=== PATIENT | male | born 1965 | race Caucasian/White ===

== ENCOUNTER 2019-01-09 21:15 | Emergency (ER) | payer SELFPAY ==
[2019-01-09 21:32] VITALS: BP 145/101; PULSE 103; RESP 18; TEMP 36.6; O2SAT 99; BMI 18.7
--- NOTE | 2019-01-09 21:35 | ED.MALEGU ---
HPI - Male Genitourinary <TIAGO Head - Last Filed: 01/09/19 21:48> General Chief complaint: Urogenital-Male Stated complaint: groin pain Time Seen by Provider: 01/09/19 21:35 Source: patient Mode of arrival: ambulatory Limitations: no limitations History of Present Illness HPI Narrative: pt c/o R sided groin pain intermittently for a month or longer, today pain got worse and he is having trouble urinating, when he has the urge, he has to go right away, and can't hold it, noticed some swelling to the groin Complaint: dysuria and other Onset (ago): month(s) (1) Duration: intermittent Location: right inguinal region Severity: severe Quality: sharp Relieving factors: none Exacerbating factors: palpation and movement Reports swelling, mass and dysuria Related Data Home Medications Medication Instructions Recorded Confirmed Lexapro 01/09/19 Seroquel 01/09/19 dextroamphetamine-amphetamine 01/09/19 Previous Rx's Medication Instructions Recorded hydrocodone-acetaminophen 1 tab PO Q6H PRN #20 tab 01/10/19 Allergies Allergy/AdvReac Type Severity Reaction Status Date / Time cephalexin [From Keflex] AdvReac Verified 01/09/19 21:37 Review of Systems <TIAGO Head - Last Filed: 01/09/19 21:48> Constitutional Reports as per HPI and Reports system reviewed and no additional complaints, except as docu Cardiovascular Denies chest pain and Denies dyspnea Respiratory Denies dyspnea Gastrointestinal Gastrointestinal: Reports as per HPI, Denies abdominal pain, Denies melena, Denies hematochezia, Denies constipation, Denies diarrhea and Denies vomiting Genitourinary Denies hematuria, Reports difficulty urinating, Reports dysuria, Denies flank pain, Denies testicular mass, Denies testicular pain, Denies urinary frequency and Denies urinary hesitancy Musculoskeletal Denies back pain PFSH <TIAGO Head - Last Filed: 01/09/19 21:48> Social History Smoking Status: Current every day smoker Social History Smoking Status: Current every day smoker Exam <TIAGO Head - Last Filed: 01/09/19 21:48> Initial Vital Signs Initial Vital Signs: Vital Signs Temperature 97.9 F 01/09/19 21:32 Pulse Rate 103 H 01/09/19 21:32 Respiratory Rate 18 01/09/19 21:32 Blood Pressure 145/101 H 01/09/19 21:32 Pulse Oximetry 99 01/09/19 21:32 Const General: cooperative, healthy appearing, comfortable and well developed Nutritional Appearance: average body habitus Orientation: alert, awake and oriented x3 Resp Effort & Inspection: normal respiratory effort and able to speak in complete sentences Auscultation: clear to auscultation bilaterally Cardio Rate: regular rate Rhythm: regular rhythm Heart Sounds: S1 normal and S2 normal GI Inspection: normal to inspection Palpation: soft, mass (mild swelling with extreme tenderness to R inguinal, pt won't even let me ) and tender Auscultation: normal bowel sounds Other: fully exam that area or try to possibly reduce possible hernia General: bimanual renal exam normal bilaterally, bladder normal to inspection and bladder normal to palpation External: normal external exam and circumcised Penis: normal penis Meatus: meatus normal Scrotum: scrotum normal Testes: normal Back/Spine/Pelvis Cervical Spine: cervical ROM normal Thoracic/Lumbar Spine: thoraco-lumbar ROM limited Skin General: no rashes or lesions noted, elasticity normal, turgor normal and warm Neuro General: alert, awake and oriented x3 Cranial Nerves: CN's II-XI intact bilaterally Cognition: normal cognition Speech: speech normal Motor: muscle tone normal throughout Sensory Exam: no sensory deficits noted Psych Appearance: grossly normal and well kempt Mental Status: mental status grossly normal Speech and Movement: speech and movement normal Mood: congruent mood Affect: normal affect Attitude: cooperative Thought Process: normal Thought Content: normal Judgment: judgment good <Alisha Pappas DO - Last Filed: 01/10/19 09:13> Initial Vital Signs Initial Vital Signs: Vital Signs Temperature 97.9 F 01/09/19 21:32 Pulse Rate 103 H 01/09/19 21:32 Respiratory Rate 18 01/09/19 21:32 Blood Pressure 145/101 H 01/09/19 21:32 Pulse Oximetry 99 01/09/19 21:32 <Najma Arita MD - Last Filed: 01/10/19 07:27> Initial Vital Signs Initial Vital Signs: Vital Signs Temperature 97.9 F 01/09/19 21:32 Pulse Rate 103 H 01/09/19 21:32 Respiratory Rate 18 01/09/19 21:32 Blood Pressure 145/101 H 01/09/19 21:32 Pulse Oximetry 99 01/09/19 21:32 <Najma Arita MD - Last Filed: 01/10/19 07:27> Procedural Sedation Patient Age: Patient is 5yrs or older Consent signed: Yes Time out performed: Yes Indication: other (Hernia reduction) ASA Class: I Preparation: content strategy lead applied, pulse oximeter, capnometry used, supplemental O2 applied, reversal agents at bedside, suction/airway equipment at bedside and IV secured Midazolam: IV Midazolam dose (mg): 5 (+ 2.5) ED Sedation Level: Moderate (Concious) Patient Tolerated Procedure: Well Complications: none Misc Procedure Name of Procedure: Hernia reduction attempt Side (if applicable): right Location: Inguinal area Time out performed: Yes Technique/Description of procedure performed: Attempts were made under sedation to reduce the patient's right inguinal hernia with firm pressure and manipulation. Patient tolerated procedure: Well Complications: other (Unable to reduce hernia successfully, despite multiple attempts.) Course <TIAGO Head - Last Filed: 01/09/19 21:48> Course Narrative: recommended labs, urine and US, and pt declined saying he has no health insurance and wants to do the bare minimum, because he is being sued by [facility] for another ER bill, agreed to urine first 2139 urine poc dip normal, back at bedside to discuss what pt wants to do, agreed to US [address] Portillo whom is assuming care and will dispo pt after US results Orders Ordered: ED Orders 01/10/19 00:47 Complete Blood Count AUTO DIFF Stat Comprehensive Metabolic Panel Stat Lactate (Lactic Acid) Stat Discontinued Medications Hydromorphone HCl (Dilaudid) 1 mg SUBCUT Q4H PRN PRN Reason: Pain, Severe (7-10) Last Admin: 01/09/19 22:51 Dose: 1 mg Sodium Chloride (Normal Saline 0.9%) 1,000 mls @ 1,000 mls/hr IV BOLUS ONE Stop: 01/10/19 00:48 Last Admin: 01/10/19 00:20 Dose: 1,000 mls/hr Midazolam HCl (Versed) 5 mg IV NOW ONE Stop: 01/09/19 23:50 Last Admin: 01/10/19 00:27 Dose: 5 mg Midazolam HCl (Versed) 5 mg IV NOW ONE Stop: 01/10/19 00:32 Last Admin: 01/10/19 00:29 Dose: 2.5 mg Vital Signs - 8 hr 01/10/19 01:16 01/10/19 02:00 Pulse Rate 72 80 Respiratory Rate 18 16 Blood Pressure [Right Arm] 98/81 107/76 Pulse Oximetry 100 96 <Alisha Pappas DO - Last Filed: 01/10/19 09:13> Orders Ordered: ED Orders 01/10/19 00:47 Complete Blood Count AUTO DIFF Stat Comprehensive Metabolic Panel Stat Lactate (Lactic Acid) Stat Discontinued Medications Hydromorphone HCl (Dilaudid) 1 mg SUBCUT Q4H PRN PRN Reason: Pain, Severe (7-10) Last Admin: 01/09/19 22:51 Dose: 1 mg Sodium Chloride (Normal Saline 0.9%) 1,000 mls @ 1,000 mls/hr IV BOLUS ONE Stop: 01/10/19 00:48 Last Admin: 01/10/19 00:20 Dose: 1,000 mls/hr Midazolam HCl (Versed) 5 mg IV NOW ONE Stop: 01/09/19 23:50 Last Admin: 01/10/19 00:27 Dose: 5 mg Midazolam HCl (Versed) 5 mg IV NOW ONE Stop: 01/10/19 00:32 Last Admin: 01/10/19 00:29 Dose: 2.5 mg Vital Signs - 8 hr 01/10/19 01:16 01/10/19 02:00 Pulse Rate 72 80 Respiratory Rate 18 16 Blood Pressure [Right Arm] 98/81 107/76 Pulse Oximetry 100 96 <Najma Arita MD - Last Filed: 01/10/19 07:27> Course Narrative: Juan J note: Patient was signed out to me by Dr. Pappas, pending ultrasound result and re-evaluation, after being evaluated by herself and Ms. Rouse for right groin pain and mass. Ultrasound did show a hyperemic section of fat and bowel in the right inguinal canal, that appeared possibly incarcerated. I discussed with the patient that we could try to reduce hernia here in the emergency department. Patient was concerned about feeling any pain, and so I did discuss the possibility of procedural sedation with him, and patient preferred this. Patient was sedated with Versed, but reduction attempts were unsuccessful. I did speak with Dr. Ivey of surgery, and she stated that she would certainly be willing to take the patient to the operating room this morning to fix the hernia but that if the patient did not wish to have this intervention today, it was not imperative that it be done today. The patient was very concerned about finances, and although we have discussed the possibility of a strangulated hernia developing, which is a surgical emergency, the patient at this point preferred to go home and think about what he would like to do. I have advised him to talk to the financial department at the hospital regarding any concerns he may have, and also, to help him get on state insurance. The patient is advised of the usual indications for return. We have also discussed surgical follow-up. Orders Ordered: ED Orders 01/10/19 00:47 Complete Blood Count AUTO DIFF Stat Comprehensive Metabolic Panel Stat Lactate (Lactic Acid) Stat Discontinued Medications Hydromorphone HCl (Dilaudid) 1 mg SUBCUT Q4H PRN PRN Reason: Pain, Severe (7-10) Last Admin: 01/09/19 22:51 Dose: 1 mg Sodium Chloride (Normal Saline 0.9%) 1,000 mls @ 1,000 mls/hr IV BOLUS ONE Stop: 01/10/19 00:48 Last Admin: 01/10/19 00:20 Dose: 1,000 mls/hr Midazolam HCl (Versed) 5 mg IV NOW ONE Stop: 01/09/19 23:50 Last Admin: 01/10/19 00:27 Dose: 5 mg Midazolam HCl (Versed) 5 mg IV NOW ONE Stop: 01/10/19 00:32 Last Admin: 01/10/19 00:29 Dose: 2.5 mg Vital Signs - 8 hr 01/10/19 01:16 01/10/19 02:00 Pulse Rate 72 80 Respiratory Rate 18 16 Blood Pressure [Right Arm] 98/81 107/76 Pulse Oximetry 100 96 MDM - Male Genitourinary <TIAGO Head - Last Filed: 01/09/19 21:48> Differential Diagnosis Likely urinary tract infection, urethritis, epididymitis, inguinal hernia and other (lymphadenopathy) Lab Data Result diagrams: 01/10/19 00:47 01/10/19 00:47 Lab Results 01/10/19 01/10/19 01/10/19 Range/Units 00:47 00:47 00:47 WBC 11.1 H (4.5-11.0) X10^3/uL RBC 4.02 L (4.5-5.9) X10^6/uL Hgb 12.6 L (13.5-17.5) g/dL Hct 37.6 L (41-53) % MCV 93.7 (80-100) fL MCH 31.5 (26-34) PG MCHC 33.6 (30-36) % RDW 14.1 (11.6-14.8) % Plt Count 232 (150-400) X10^3/uL Neut % (Auto) 64.6 (50-75) % Lymph % (Auto) 22.3 L (25-40) % [place] % (Auto) 9.7 (3-14) % Eos % (Auto) 2.8 (2-4) % Baso % (Auto) 0.6 (0-2) % Neut # (Auto) 7200 H (5850-1180) /uL Lymph # (Auto) 2500 (9961-7375) /uL [place] # (Auto) 1100 H (0-900) /uL Eos # (Auto) 300 (0-450) /uL Baso # (Auto) 100 (0-100) /uL Sodium 137 (137-145) mmol/L Potassium 3.8 (3.4-5.1) mmol/L Chloride 105 (98-107) mmol/L Carbon Dioxide 23 (22-32) mmol/L BUN 11 (9-20) mg/dL Creatinine 0.60 L (0.66-1.25) mg/dL Estimated GFR > 60.0 (>60) mL/min BUN/Creatinine Ratio 18.3 (6-22) Glucose 81 (70-100) mg/dL Lactate 1.2 (0.7-2.1) mmol/L Calcium 8.4 (8.4-10.2) mg/dL Total Bilirubin 0.7 (0.2-1.3) mg/dL AST 27 (17-59) IU/L ALT 25 (21-72) IU/L Alkaline Phosphatase 60 (38-126) U/L Total Protein 6.9 (6.3-8.2) g/dL Albumin 3.9 (3.5-5.0) g/dL Globulin 3.0 (1.7-4.1) g/dL Albumin/Globulin Ratio 1.3 (1.0-2.8) Urine Dip Bedside Urine Glucose Negative Bedside Urine Bilirubin - Negative Bedside Urine Ketone - Negative Urine Specific [place] 1.010 Bedside Urine Occult Blood - Negative Bedside Urine pH 6.0 Bedside Urine Protein - Negative Bedside Urine Urobilinogen - Negative Bedside Urine Nitrite - Negative Bedside Urine Leukocytes - Negative Esterase <Alisha Pappas, DO - Last Filed: 01/10/19 09:13> Lab Data Attestation: I reviewed the patient's lab results. Lab Results 01/10/19 01/10/19 01/10/19 Range/Units 00:47 00:47 00:47 WBC 11.1 H (4.5-11.0) X10^3/uL RBC 4.02 L (4.5-5.9) X10^6/uL Hgb 12.6 L (13.5-17.5) g/dL Hct 37.6 L (41-53) % MCV 93.7 (80-100) fL MCH 31.5 (26-34) PG MCHC 33.6 (30-36) % RDW 14.1 (11.6-14.8) % Plt Count 232 (150-400) X10^3/uL Neut % (Auto) 64.6 (50-75) % Lymph % (Auto) 22.3 L (25-40) % [place] % (Auto) 9.7 (3-14) % Eos % (Auto) 2.8 (2-4) % Baso % (Auto) 0.6 (0-2) % Neut # (Auto) 7200 H (4171-8894) /uL Lymph # (Auto) 2500 (4227-1040) /uL [place] # (Auto) 1100 H (0-900) /uL Eos # (Auto) 300 (0-450) /uL Baso # (Auto) 100 (0-100) /uL Sodium 137 (137-145) mmol/L Potassium 3.8 (3.4-5.1) mmol/L Chloride 105 (98-107) mmol/L Carbon Dioxide 23 (22-32) mmol/L BUN 11 (9-20) mg/dL Creatinine 0.60 L (0.66-1.25) mg/dL Estimated GFR > 60.0 (>60) mL/min BUN/Creatinine Ratio 18.3 (6-22) Glucose 81 (70-100) mg/dL Lactate 1.2 (0.7-2.1) mmol/L Calcium 8.4 (8.4-10.2) mg/dL Total Bilirubin 0.7 (0.2-1.3) mg/dL AST 27 (17-59) IU/L ALT 25 (21-72) IU/L Alkaline Phosphatase 60 (38-126) U/L Total Protein 6.9 (6.3-8.2) g/dL Albumin 3.9 (3.5-5.0) g/dL Globulin 3.0 (1.7-4.1) g/dL Albumin/Globulin Ratio 1.3 (1.0-2.8) Urine Dip Bedside Urine Glucose Negative Bedside Urine Bilirubin - Negative Bedside Urine Ketone - Negative Urine Specific [place] 1.010 Bedside Urine Occult Blood - Negative Bedside Urine pH 6.0 Bedside Urine Protein - Negative Bedside Urine Urobilinogen - Negative Bedside Urine Nitrite - Negative Bedside Urine Leukocytes - Negative Esterase MDM Narrative Medical decision making narrative: I have seen and evaluated patient myself. He is extremely tender with swollen area in his right testicle and groin area. Ultrasound here but he is needing pain medication before exam. Patient signed out to Dr. browne for reduction. <Najma Arita MD - Last Filed: 01/10/19 07:27> Medical Records Attestation: I reviewed the patient's medical records. Lab Data Attestation: I reviewed the patient's lab results. Lab Results 01/10/19 01/10/19 01/10/19 Range/Units 00:47 00:47 00:47 WBC 11.1 H (4.5-11.0) X10^3/uL RBC 4.02 L (4.5-5.9) X10^6/uL Hgb 12.6 L (13.5-17.5) g/dL Hct 37.6 L (41-53) % MCV 93.7 (80-100) fL MCH 31.5 (26-34) PG MCHC 33.6 (30-36) % RDW 14.1 (11.6-14.8) % Plt Count 232 (150-400) X10^3/uL Neut % (Auto) 64.6 (50-75) % Lymph % (Auto) 22.3 L (25-40) % [place] % (Auto) 9.7 (3-14) % Eos % (Auto) 2.8 (2-4) % Baso % (Auto) 0.6 (0-2) % Neut # (Auto) 7200 H (8763-1923) /uL Lymph # (Auto) 2500 (8081-8448) /uL [place] # (Auto) 1100 H (0-900) /uL Eos # (Auto) 300 (0-450) /uL Baso # (Auto) 100 (0-100) /uL Sodium 137 (137-145) mmol/L Potassium 3.8 (3.4-5.1) mmol/L Chloride 105 (98-107) mmol/L Carbon Dioxide 23 (22-32) mmol/L BUN 11 (9-20) mg/dL Creatinine 0.60 L (0.66-1.25) mg/dL Estimated GFR > 60.0 (>60) mL/min BUN/Creatinine Ratio 18.3 (6-22) Glucose 81 (70-100) mg/dL Lactate 1.2 (0.7-2.1) mmol/L Calcium 8.4 (8.4-10.2) mg/dL Total Bilirubin 0.7 (0.2-1.3) mg/dL AST 27 (17-59) IU/L ALT 25 (21-72) IU/L Alkaline Phosphatase 60 (38-126) U/L Total Protein 6.9 (6.3-8.2) g/dL Albumin 3.9 (3.5-5.0) g/dL Globulin 3.0 (1.7-4.1) g/dL Albumin/Globulin Ratio 1.3 (1.0-2.8) Urine Dip Bedside Urine Glucose Negative Bedside Urine Bilirubin - Negative Bedside Urine Ketone - Negative Urine Specific [place] 1.010 Bedside Urine Occult Blood - Negative Bedside Urine pH 6.0 Bedside Urine Protein - Negative Bedside Urine Urobilinogen - Negative Bedside Urine Nitrite - Negative Bedside Urine Leukocytes - Negative Esterase Imaging Data Ultrasound scrotum: Radiologist's impression: Radiology impression: Right inguinal hernia containing fat and bowel. Possible inflammation and incarceration. Normal appearing testicles. Distended left vas deferens. Patient is status post vasectomy. Signed by Dr. Bert Phelps M.D. Discharge Plan Departure Patient Disposition: Home Clinical Impression: Incarcerated inguinal hernia Discharge Date/Time: 01/10/19 02:50 Interventions: ED Discharge Assessment Last Done: 01/10/19 02:50 Instructions: DI for Groin Hernia Activity Restrictions/Additional Instructions: Your ultrasound shows a hernia which is somewhat inflamed, but has good blood flow. We were not able to get the herniated tissue to go back into its normal place tonight. As such, your case was discussed with the on-call surgeon, who stated that your hernia could be fixed today, but that this does not necessarily need to be done emergently. However, if you develop increasing pain, and if the skin over the hernia begins to become discolored, you need to have the hernia rechecked without delay, as this can be signs that the blood flow to the herniated tissue has been cut off, which is an emergency. At this point in time, please use ice and take the pain medication as needed. Please also avoid heavy lifting or other straining, which can make your hernia worse. Please call as soon as possible to schedule a follow-up appointment with the surgery clinic to discuss management of your hernia. Please also consider talking to the hospital financial department, who can help you come up with a workable financial plan for your surgical repair, should this become necessary. They may also be able to help you with your insurance. Prescriptions: New hydrocodone-acetaminophen 5-325 mg tablet 1 tab PO Q6H PRN (Reason: pain) Qty: 20 RF: 0 No Action Seroquel RF: 0 Lexapro RF: 0 dextroamphetamine-amphetamine 20 mg tablet RF: 0 Referrals: [facility] [Provider Group] <Alisha Pappas, - Last Filed: 01/10/19 09:13> Cosign ED Attending Chastity Attestation: I was immediately available in the department for consultation. Documentation has been reviewed. I agree with assessment and plan.
--- NOTE | 2019-01-09 21:43 | DI.US.S_ITS ---
PROCEDURE: US SCROTUM INDICATIONS: RIGHT INGUINAL SWELLING / PAIN, R/O HERNIA TECHNIQUE: Real-time scanning was performed of the scrotum and testicles, with image documentation. Color and pulse Doppler interrogation was performed of both testicles. COMPARISON: None. FINDINGS: Right: Testicle is normal in size at 4.6 x 3.4 x 2.6 cm, and homogenous in echotexture. Epididymis is normal in overall size and morphology. Small left hydrocele noted. No varicoceles. Overlying scrotal skin is normal in thickness. Left: Testicle is normal in size at 4.2 x 3.3 x 2.3 cm, and homogeneous in echotexture. Epididymis is normal in overall size and morphology. The left vas deferens is distended. Patient is status post vasectomy. Small left hydrocele noted. No varicoceles. Overlying scrotal skin is normal in thickness. Doppler: Color and pulse Doppler demonstrate normal and symmetric arterial flow in both testicles. There is a right inguinal canal which has a neck measuring 1.1 cm. Loop of bowel herniates through the inguinal canal into the right scrotum. The herniated bowel was non-peristalsing and hyperemic. The herniated bowel is nonreducible and tender. IMPRESSION: 1. Large right inguinal canal hernia which contains a loop of tender, non-peristalsing, nonreducible, hyperemic bowel concerning for incarceration. 2. Small bilateral scrotal hydroceles. Dictated by: Debora Lee MD, PhD on 01/10/2019 at 8:43 Approved by: Debora Lee MD, PhD on 01/10/2019 at 8:51
[2019-01-09] MEDS: HYDROMORPHONE 2 MG INJ 1 MG SUBCUT (22:51)
--- NOTE | 2019-01-09 23:00 | PC.NURSE ---
Pt unable to tolerate US testing due to pain. medicated pt with Dilaudid 1mg SC as ordered.
--- NOTE | 2019-01-09 23:54 | PC.NURSE ---
moved pt to rm 2 for mild sedation and hernia reduction
[2019-01-09 23:58] VITALS: BP 117/60; PULSE 77; RESP 18; O2SAT 97
[2019-01-10] VITALS (10 sets, daily range): BP systolic 68–107; BP diastolic 53–87; PULSE 72–89; RESP 15–20; O2SAT 96–100
[2019-01-10] MEDS: SODIUM CHLORIDE 0.9% 1,000 ML 1000 ML IV (00:20)
[2019-01-10] MEDS: MIDAZOLAM 2 MG/2 ML VIAL 5 MG IV (00:27)
[2019-01-10] MEDS: MIDAZOLAM 5 MG/5 ML VIAL IV (00:29)
[2019-01-10 01:02] LABS: Add Manual Diff / Slide Review NO; Basophils Absolute Auto 100 /uL (0-100); Basophils Percent Auto 0.6 % (0-2); Eosinophils Absolute Auto 300 /uL (0-450); Eosinophils Percent Auto 2.8 % (2-4); Hematocrit 37.6 % (41-53); Hemoglobin 12.6 g/dL (13.5-17.5); Lymphocytes Absolute Auto 2500 /uL (1100-4500); Lymphocytes Percent Auto 22.3 % (25-40); Mean Corpuscular HGB Conc 33.6 % (30-36); Mean Corpuscular Hemoglobin 31.5 PG (26-34); Mean Corpuscular Volume 93.7 fL (80-100); Monocytes Absolute Auto 1100 /uL (0-900); Monocytes Percent Auto 9.7 % (3-14); Neutrophils Absolute Auto 7200 /uL (1500-7000); Neutrophils Percent Auto 64.6 % (50-75); Platelet Count 232 X10^3/uL (150-400); Red Blood Cell Count 4.02 X10^6/uL (4.5-5.9); Red Cell Distribution Width 14.1 % (11.6-14.8); White Blood Cell Count 11.1 X10^3/uL (4.5-11.0)
[2019-01-10 01:14] LABS: Alanine Aminotransferase 25 IU/L (21-72); Albumin 3.9 g/dL (3.5-5.0); Albumin Globulin Ratio 1.3 (1.0-2.8); Alkaline Phosphatase 60 U/L (38-126); Aspartate Aminotransferase 27 IU/L (17-59); BUN Creatinine Ratio 18.3 (6-22); Bilirubin Total 0.7 mg/dL (0.2-1.3); Blood Urea Nitrogen 11 mg/dL (9-20); Calcium 8.4 mg/dL (8.4-10.2); Carbon Dioxide 23 mmol/L (22-32); Chloride 105 mmol/L (98-107); Estimated Glomerular Filt Rate > 60.0 mL/min (>60); Glucose 81 mg/dL (70-100); HEMOLYSIS < 15 (0-50); Lactate (Lactic Acid) 1.2 mmol/L (0.7-2.1); Potassium 3.8 mmol/L (3.4-5.1); Sodium 137 mmol/L (137-145); Total Protein 6.9 g/dL (6.3-8.2)
--- NOTE | 2019-01-10 01:14 | PC.NURSE ---
pt fully awake at this time and inquiring whether the procedure has completed and informed it has been but not certain if R groin hernia has fully reduced at this time. Pt working on his laptop while sitting up in bed.
--- NOTE | 2019-02-01 16:43 | PC.NURSE ---
Late Entry - Per Hitesh RN; Pt recieved 1000mL NS IV completed 01/10/2019 at 0145.
== END 2019-01-10 02:50 | disposition home or self-care (01) ==
PROVIDERS: Emergency Provider Emergency Medicine
DX: K40.30 Unilateral inguinal hernia, with obstruction, without gangrene, not specified as recurrent (principal); R30.0 Dysuria
CPT/HCPCS: 36415; 76870; 80053; 81003; 83605; 85025; 94770; 96361; 96365; 96372; 99284; 99285; J1170; J2250

== ENCOUNTER 2019-01-23 17:04 | Emergency (ER) | payer MEDICAID, SELFPAY ==
[2019-01-23 17:34] VITALS: BP 130/84; PULSE 85; RESP 20; TEMP 37.1; O2SAT 100
--- NOTE | 2019-01-23 20:51 | DI.RAD.S_ITS ---
PROCEDURE: XR ACUTE ABDOMEN SERIES INDICATIONS: Abdominal pain TECHNIQUE: One view chest and two views of the abdomen were acquired. COMPARISON: None. FINDINGS: Surgical changes and devices: None. Chest: Small patchy consolidation in the right upper lung zone with suggestion of possible pulmonary cyst or cavitation. Small left perihilar opacity is favored to represent perihilar structures. Heart size is normal. No pleural effusions. No pneumoperitoneum. Abdomen: Bowel gas pattern is normal. No suspicious calcifications. Visualized solid contours appear normal. Bones: No suspicious bony lesions. IMPRESSION: 1. Right upper lung consolidation with suggestion of possible cavitation versus artifact. Findings may represent acute air space disease/pneumonia. Recommend excluding possible atypical pneumonia or mycobacterial pneumonia given its location. Recommend followup chest radiograph 4-6 weeks after acute symptoms or treatment to document resolution findings. 2. Nonobstructive bowel gas pattern. Findings were discussed with Dr. Correa of the emergency department. Dictated by: Babak Hassan M.D. on 01/23/2019 at 21:16 Approved by: Babak Hassan M.D. on 01/23/2019 at 21:24
--- NOTE | 2019-01-23 20:55 | ED_ITS ---
HPI - Abdominal Pain General Chief Complaint: Abdominal Pain Stated Complaint: has a hernia that he wants fixed Time Seen by Provider: 01/23/19 20:46 Source: patient Mode of arrival: ambulatory Limitations: no limitations History of Present Illness HPI narrative: 53-year-old male smoker presents with severe right inguinal pain, generalized lower abdominal pain and decreased bowel movements. He has a known right inguinal hernia which has been painful off and on for about the past month but exquisitely painful for the past day or 2. He has had nausea and vomiting and states that has not gone back in and least a day. He denies any trouble with urination. Was seen and evaluated about a week ago and attempts were made to reduce it but apparently unsuccessful. He has had no fever or chills. He is otherwise relatively healthy. His last oral intake was at 8:00 p.m. ayanna (1 hour ago) complaint: abdominal pain Onset (ago): day(s) Pain Consistency: constant Location: RLQ Severity: severe Quality: stabbing and aching Radiation: none Migration to: no migration Relieving factors: nothing Exacerbating factors: movement Associated symptoms: nausea and vomiting Related Data Home Medications Medication Instructions Recorded Confirmed Lexapro 01/09/19 Seroquel 01/09/19 dextroamphetamine-amphetamine 01/09/19 Previous Rx's Medication Instructions Recorded hydrocodone-acetaminophen 1 tab PO Q6H PRN #20 tab 01/10/19 ciprofloxacin HCl 500 mg PO BID 7 Days #14 tab 01/24/19 hydrocodone-acetaminophen 1 tab PO Q4-6H PRN #10 tab 01/24/19 Allergies Allergy/AdvReac Type Severity Reaction Status Date / Time cephalexin [From Keflex] AdvReac Verified 01/09/19 21:37 Review of Systems Constitutional Denies chills, Denies fever(s), Denies lethargy and Denies weakness Eyes Denies change in vision, Denies eye discharge, Denies irritation and Denies loss of vision ENT Ears, Nose, Mouth, and Throat: Denies change in voice, Denies neck pain and Denies sore throat Cardiovascular Denies chest pain, Denies irregular heart rhythm, Denies lightheadedness, Denies palpitations, Denies dyspnea, Denies dyspnea on exertion and Denies orthopnea Respiratory Denies cough, Denies dyspnea, Denies dyspnea on exertion and Denies wheezing Gastrointestinal Gastrointestinal: Reports abdominal pain, Denies change in bowel habits, Reports nausea and Reports vomiting Genitourinary Denies hematuria, Denies flank pain, Denies urinary incontinence and Denies urinary urgency Musculoskeletal Denies neck pain Integumentary/Breasts Denies pruritus, Denies erythema, Denies rash and Denies wounds Neurologic Denies confusion, Denies loss of vision and Denies weakness Psychiatric Denies anxiety, Denies confusion, Denies depression, Denies homicidal ideation and Denies suicidal ideation Endocrine Denies palpitations Hematologic/Lymphatic Denies easy bruising Allergic/Immunologic Denies wheezing [facility] Medical History (Updated 01/24/19 @ 01:48 by Freedom Correa DO) Anxiety (Chronic) Insomnia (Chronic) Surgical History (Updated 01/23/19 @ 22:47 by Franco Travis MD) H/O vasectomy (Resolved) Social History (Updated 01/23/19 @ 22:47 by Franco Travis MD) Smoking Status: Current every day smoker alcohol intake: current Social History (Updated 01/23/19 @ 22:47 by Franco Travis MD) Smoking Status: Current every day smoker alcohol intake: current Exam Narrative Exam Narrative: GENERAL: 53-year-old male appears stated age, obviously quite uncomfortable and clutching his right groin HEAD: Atraumatic. Normocephalic. No temporal or scalp tenderness. EYES: Pupils equal round and reactive. Extraocular motions intact. No scleral icterus. No injection or drainage. ENT: Nose without bleeding, purulent drainage or septal hematoma. Throat without erythema, tonsillar hypertrophy or exudate. Uvula midline. Airway patent. NECK: Trachea midline. No JVD or lymphadenopathy. Supple, nontender, no meningeal signs. CARDIOVASCULAR: Regular rate and rhythm without murmurs, gallops, or rubs. RESPIRATORY: Clear to auscultation. Breath sounds equal bilaterally. No wheezes, rales, or rhonchi. GASTROINTESTINAL: Abdomen soft, severe tenderness in the right inguinal region with a non reducible hernia, no overlying redness or warmth. No hepato- splenomegaly, or palpable masses. No guarding. EXTREMITIES: No clubbing, cyanosis, or edema. No joint tenderness, effusion, or edema noted. BACK: Nontender without deformity or crepitance. No flank tenderness. NEURO: AOx3. SKIN: No rash or erythema. Initial Vital Signs Initial Vital Signs: Vital Signs Temperature 98.7 F 01/23/19 17:34 Pulse Rate 85 01/23/19 17:34 Respiratory Rate 20 01/23/19 17:34 Blood Pressure 130/84 01/23/19 17:34 Pulse Oximetry 100 01/23/19 17:34 Course Orders Ordered: ED Orders 01/23/19 23:45 Basic Metabolic Panel Stat Complete Blood Count AUTO DIFF Stat 01/24/19 00:16 US scrotum Stat Discontinued Medications Hydromorphone HCl (Dilaudid) 1 mg IV NOW ONE Stop: 01/23/19 20:52 Last Admin: 01/23/19 22:16 Dose: 1 mg Hydromorphone HCl (Dilaudid) 1 mg IV NOW ONE Stop: 01/24/19 01:01 Last Admin: 01/24/19 01:01 Dose: 1 mg Sodium Chloride (Normal Saline 0.9%) 1,000 mls @ 1,000 mls/hr IV BOLUS ONE Stop: 01/23/19 21:50 Last Infusion: 01/23/19 23:51 Dose: 0 mls/hr Admin: 01/23/19 22:16 Dose: 1,000 mls/hr Vital Signs - 8 hr 01/24/19 02:49 Pulse Rate 72 Respiratory Rate 16 Blood Pressure 121/79 Pulse Oximetry 98 MDM - Abdominal Pain Lab Data Result diagrams: 01/23/19 23:45 01/23/19 23:45 Lab Results 01/23/19 01/23/19 01/24/19 Range/Units 23:45 23:45 00:05 WBC 14.1 H (4.5-11.0) X10^3/uL RBC 4.21 L (4.5-5.9) X10^6/uL Hgb 12.9 L (13.5-17.5) g/dL Hct 39.1 L (41-53) % MCV 92.8 (80-100) fL MCH 30.7 (26-34) PG MCHC 33.1 (30-36) % RDW 13.5 (11.6-14.8) % Plt Count 307 (150-400) X10^3/uL Neut % (Auto) 66.1 (50-75) % Lymph % (Auto) 21.7 L (25-40) % [place] % (Auto) 9.7 (3-14) % Eos % (Auto) 1.9 L (2-4) % Baso % (Auto) 0.6 (0-2) % Neut # (Auto) 9300 H (0941-4795) /uL Lymph # (Auto) 3100 (8502-9680) /uL [place] # (Auto) 1400 H (0-900) /uL Eos # (Auto) 300 (0-450) /uL Baso # (Auto) 100 (0-100) /uL Sodium 136 L (137-145) mmol/L Potassium 4.0 (3.4-5.1) mmol/L Chloride 103 (98-107) mmol/L Carbon Dioxide 24 (22-32) mmol/L BUN 13 (9-20) mg/dL Creatinine 0.70 (0.66-1.25) mg/dL Estimated GFR > 60.0 (>60) mL/min BUN/Creatinine Ratio 18.6 (6-22) Glucose 90 (70-100) mg/dL Lactate 0.6 L (0.7-2.1) mmol/L Calcium 8.6 (8.4-10.2) mg/dL Point of care testing: Urine Dip Bedside Urine Glucose Negative Bedside Urine Bilirubin - Negative Bedside Urine Ketone - Negative Urine Specific [place] 1.015 Bedside Urine Occult Blood - Negative Bedside Urine pH 6 Bedside Urine Protein +/- 15 Bedside Urine Urobilinogen - Negative Bedside Urine Nitrite - Negative Bedside Urine Leukocytes - Negative Esterase Imaging Data Testicular US: Radiologist's impression: No torsion, testicular trouble, or epididymitis MDM Narrative Medical decision making narrative: Multiple etiologies for patient's symptoms considered including: [Inguinal hernia versus testicular torsion versus has deferens inflammation versus other] Patient's symptoms improved or duration of stay with above-stated therapies. Findings and discharge diagnosis discussed with patient/family followed by verbalization of understanding Return precautions discussed with patient/family whom verbalize understanding. Discharge Plan Departure Patient Disposition: Home Clinical Impression: Vasitis Discharge Date/Time: 01/24/19 02:49 Interventions: ED Discharge Assessment Last Done: 01/24/19 02:49 Activity Restrictions/Additional Instructions: *You have been diagnosed with [ Right inguinal pain thought likely to be from vasitis] *What to do: *Take medications as directed *Follow up with your primary care provider in 2-3 days, call for an appointment. Let them know you were seen in the Emergency Department and that we ask that you be seen in follow up. Your chest Xray needs to be followed, there was a questionable spot that is likely artifact but needs to be followed in the next few weeks *Return to ER if you should have any new, worsening or concerning symptoms Prescriptions: New hydrocodone-acetaminophen 5-325 mg tablet 1 tab PO Q4-6H PRN (Reason: pain) Qty: 10 RF: 0 ciprofloxacin HCl 500 mg tablet 500 mg PO BID 7 Days Qty: 14 RF: 0 No Action Seroquel RF: 0 Lexapro RF: 0 dextroamphetamine-amphetamine 20 mg tablet RF: 0 hydrocodone-acetaminophen 5-325 mg tablet 1 tab PO Q6H PRN (Reason: pain) Qty: 20 RF: 0 Referrals: Abdiel Blevins MD [Physician] - Mandy Cheema DO [Physician] -
--- NOTE | 2019-01-23 22:12 | DI.CT.S_ITS ---
PROCEDURE: CT PELVIS W CON INDICATIONS: severe R inguinal pain TECHNIQUE: After the administration of intravenous contrast, 5 mm thick sections acquired from the iliac crests to the symphysis. 5 mm coronal and sagittal reformats were acquired. For radiation dose reduction, the following was used: automated exposure control, adjustment of mA and/or kV according to patient size. COMPARISON: None. FINDINGS: Image quality: Excellent. Peritoneum and bowel: Liquid stools present in the visible proximal colon the lung with air fluid levels. Bowel loops demonstrate normal wall thickness and caliber. No free fluid or air. Genitourinary: Bladder wall thickness is normal. Trace amount of fluid within the right inguinal canal above mastectomy clips. Very mild fat stranding in the subcutaneous soft tissues around the spermatic cord structures. No inguinal hernias. Nodes and vessels: No iliac, pelvic, or inguinal adenopathy by size criteria. Iliac vessels demonstrate normal size and enhancement. Bones: No suspicious bony lesions. Chronic appearing L5 compression fracture. Miscellaneous: Incidental note made of a partially imaged gallbladder containing a small proximal stone. IMPRESSION: 1. Mild inflammatory changes and fluid at and surrounding the right spermatic cord suggestive of vasitis. 2. No evidence of hernia. 3. Liquid stool in the visible colon loops suggesting localized ileus. 4. Chronic L5 compression fracture. 5. Incidental note made of cholelithiasis. Concordant with preliminary results. Dictated by: Itzel Rowan M.D. on 01/24/2019 at 8:10 Approved by: Itzel Rowan M.D. on 01/24/2019 at 8:16
[2019-01-23] MEDS: SODIUM CHLORIDE 0.9% 1,000 ML 1000 ML IV (22:16)
[2019-01-23] MEDS: HYDROMORPHONE 1 MG INJ IV (22:16)
--- NOTE | 2019-01-23 22:52 | P.CONS_ITS ---
History of Present Illness Date Patient Seen: 01/23/19 Time Patient Seen: 22:43 Chief complaint: has a hernia that he wants fixed Reason for consult: Incarcerated hernia Narrative: The patient is a gentleman who was in the ER but a week ago. He was told he had incarcerated hernia but declined an operation due to lack of insurance. He has had pain for months apparently. In that noted states he also was having difficulty with urination. Denies any dysuria or hematuria. No history of kidney stones. The patient has had a vasectomy. He states that the pain is exquisite. The bulge is no bigger than it is at the present moment but it is exquisitely tender with palpation. He thought he would come in tonight be admitted and have an operation tomorrow. [facility] Medical History (Updated 01/23/19 @ 22:46 by Franco Travis MD) Anxiety (Chronic) Insomnia (Chronic) Surgical History (Updated 01/23/19 @ 22:47 by Franco Travis MD) H/O vasectomy (Resolved) Social History (Updated 01/23/19 @ 22:47 by Franco Travis MD) Smoking Status: Current every day smoker alcohol intake: current Social History (Updated 01/23/19 @ 22:47 by Franco Travis MD) Smoking Status: Current every day smoker alcohol intake: current Comment: Drinks a 6 pack of beer a day and has since he was in his 20s Meds Home Medications Medication Instructions Recorded Confirmed Type Lexapro 01/09/19 History Seroquel 01/09/19 History dextroamphetamine-amphetamine 01/09/19 History hydrocodone-acetaminophen 1 tab PO Q6H PRN #20 tab 01/10/19 Rx Allergies Allergy/AdvReac Type Severity Reaction Status Date / Time cephalexin [From Keflex] AdvReac Verified 01/09/19 21:37 Review of Systems Review of Systems Denies any visual difficulties other than wearing glasses. No double vision pain is eyes earache sore throat trouble swallowing. No tooth aches. No cough cold or asthma. No chest pain or heart problems or murmurs. No black or bloody bowel movements. No nausea vomiting. No seizures blackouts. Exam Vital Signs (past 8 hours): - 01/23/19 17:34 Temperature 98.7 F Pulse Rate 85 Respiratory Rate 20 Blood Pressure 130/84 Pulse Oximetry 100 Oxygen Delivery Method Room Air Narrative Exam Narrative: Attempted to examine him and he screamed just with the slightest touch of his scrotum and epididymis. I never got of initially feel the area of his inguinal canal. Patient had an IV started and was given pain medication and then I could examine him. He still complained of severe pain but it was mostly of his epididymis. He had a firm raised area within it. I could not feel any contents in where I would expect an inguinal hernia to be. There was no evidence of femoral hernia. Objective Imaging CT pelvis/ultrasound: My impression: I did not review the ultrasound but I did review the report. It suggested that was the knuckle bowel of fat in the inguinal canal. However the CT scan today does not reveal anything within the inguinal canal. I do not appreciate a hernia. I do see changes from his vasectomy. Assessment & Plan Assessment & Plan narrative: I think the patient's pain is in his epididymis. He may have thrombosed vein or have epididymitis. I do not know. I do know that there is no hernia that I can feel that is incarcerated at this time and I really do not see [address] scan. I await the report. If it confirms my assessment then I would proceed to treat him for epididymitis.
[2019-01-23 22:55] VITALS: BP 112/81; PULSE 82; RESP 18; O2SAT 99
[2019-01-23 23:59] LABS: Add Manual Diff / Slide Review NO; Basophils Absolute Auto 100 /uL (0-100); Basophils Percent Auto 0.6 % (0-2); Eosinophils Absolute Auto 300 /uL (0-450); Eosinophils Percent Auto 1.9 % (2-4); Hematocrit 39.1 % (41-53); Hemoglobin 12.9 g/dL (13.5-17.5); Lymphocytes Absolute Auto 3100 /uL (1100-4500); Lymphocytes Percent Auto 21.7 % (25-40); Mean Corpuscular HGB Conc 33.1 % (30-36); Mean Corpuscular Hemoglobin 30.7 PG (26-34); Mean Corpuscular Volume 92.8 fL (80-100); Monocytes Absolute Auto 1400 /uL (0-900); Monocytes Percent Auto 9.7 % (3-14); Neutrophils Absolute Auto 9300 /uL (1500-7000); Neutrophils Percent Auto 66.1 % (50-75); Platelet Count 307 X10^3/uL (150-400); Red Blood Cell Count 4.21 X10^6/uL (4.5-5.9); Red Cell Distribution Width 13.5 % (11.6-14.8); White Blood Cell Count 14.1 X10^3/uL (4.5-11.0)
[2019-01-24 00:14] LABS: BUN Creatinine Ratio 18.6 (6-22); Blood Urea Nitrogen 13 mg/dL (9-20); Calcium 8.6 mg/dL (8.4-10.2); Carbon Dioxide 24 mmol/L (22-32); Chloride 103 mmol/L (98-107); Estimated Glomerular Filt Rate > 60.0 mL/min (>60); Glucose 90 mg/dL (70-100); HEMOLYSIS < 15 (0-50); Sodium 136 mmol/L (137-145)
--- NOTE | 2019-01-24 00:16 | DI.US.S_ITS ---
PROCEDURE: US SCROTUM INDICATIONS: TESTICULAR PAIN TECHNIQUE: Real-time scanning was performed of the scrotum and testicles, with image documentation. Color and pulse Doppler interrogation was performed of both testicles. COMPARISON: [facility], CT, CT PELVIS W CON, 01/23/2019, 22:25. [facility], US, US SCROTUM, 01/09/2019, 22:43. FINDINGS: Right: Testicle is normal in size at 4.1 x 3.3 x 2.6 cm, and homogenous in echotexture. Epididymis is normal in overall size and morphology. Small right hydrocele noted. No varicoceles. Overlying scrotal skin is normal in thickness. 1.3 cm cyst noted in the right inguinal canal. Left: Testicle is normal in size at 4.0 x 3.2 x 2.5 cm, and homogeneous in echotexture. Epididymis is normal in overall size and morphology. Small left hydrocele noted. No varicoceles. Overlying scrotal skin is normal in thickness. Doppler: Color and pulse Doppler demonstrate normal and symmetric arterial flow in both testicles. IMPRESSION: 1. No evidence of testicular torsion. Please note intermittent testicular torsion cannot be excluded by ultrasound. 2. 1.3 cm cyst in the right inguinal canal possibly related to hernia identified by prior ultrasound obtained for cytology once one 2018. Loops of bowel which were contained in the right inguinal hernia at the time of the prior ultrasound are not within the canal in the current ultrasound. Dictated by: Debora Lee MD, PhD on 01/24/2019 at 9:29 Approved by: Debora Lee MD, PhD on 01/24/2019 at 10:00
[2019-01-24 00:22] LABS: Lactate (Lactic Acid) 0.6 mmol/L (0.7-2.1)
[2019-01-24] MEDS: HYDROMORPHONE 1 MG INJ IV (01:01)
[2019-01-24 02:49] VITALS: BP 121/79; PULSE 72; RESP 16; O2SAT 98
== END 2019-01-24 02:49 | disposition home or self-care (01) ==
PROVIDERS: Emergency Provider Emergency Medicine
DX: N49.1 Inflammatory disorders of spermatic cord, tunica vaginalis and vas deferens (principal); R11.2 Nausea with vomiting, unspecified
CPT/HCPCS: 36415; 72193; 74022; 76870; 80048; 81003; 83605; 85025; 96361; 96374; 96375; 99283; 99284; J1170; Q9967

== ENCOUNTER 2020-10-11 05:49 | Emergency (ER) | payer OTHER, SELFPAY ==
[2020-10-11] VITALS (20 sets, daily range): BP systolic 85–147; BP diastolic 61–100; PULSE 81–101; RESP 20–24; TEMP 36.6; O2SAT 94–99; BMI 20.9
--- NOTE | 2020-10-11 05:53 | DI.RAD.S_ITS ---
PROCEDURE: XR KNEE LT 3V INDICATIONS: stood on it,felt a pop,has osteoporosis TECHNIQUE: 3 views of the knee were acquired. COMPARISON: None. FINDINGS: Bones: Comminuted lateral tibial plateau fracture involving the tibial eminence. There is a vertical fracture extending to the proximal tibial diaphysis. No suspicious bony lesions. Soft tissues: Moderate knee joint effusion consistent with hemarthrosis. No suspicious soft tissue calcifications. IMPRESSION: 1. Comminuted lateral tibial plateau fracture with central depression. 2. There is a vertical fracture line extending to the tibial metaphysis and proximal tibial metaphysis. 3. Hemarthrosis. Dictated by: Sandra Berger M.D. on 10/11/2020 at 8:51 Approved by: Sandra Berger M.D. on 10/11/2020 at 8:53
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
[2020-10-11] MEDS: ONDANSETRON 4 MG/2 ML INJ IV (06:19)
[2020-10-11] MEDS: HYDROMORPHONE 1 MG INJ IV ×3 (06:19→08:49)
[2020-10-11 06:40] LABS: Add Manual Diff / Slide Review NO; Basophils Absolute Auto 100 /uL (0-100); Basophils Percent Auto 0.7 % (0-2); Eosinophils Absolute Auto 300 /uL (0-450); Hematocrit 46.9 % (41-53); Hemoglobin 15.4 g/dL (13.5-17.5); Lymphocytes Absolute Auto 3100 /uL (1100-4500); Lymphocytes Percent Auto 19.4 % (25-40); Mean Corpuscular HGB Conc 32.8 % (30-36); Mean Corpuscular Hemoglobin 33.3 PG (26-34); Mean Corpuscular Volume 101.6 fL (80-100); Monocytes Absolute Auto 1100 /uL (0-900); Monocytes Percent Auto 6.7 % (3-14); Neutrophils Absolute Auto 11200 /uL (1500-7000); Neutrophils Percent Auto 71.2 % (50-75); Platelet Count 272 X10^3/uL (150-400); Red Blood Cell Count 4.61 X10^6/uL (4.5-5.9); Red Cell Distribution Width 13.1 % (11.6-14.8); White Blood Cell Count 15.8 X10^3/uL (4.5-11.0)
[2020-10-11 06:49] LABS: Alanine Aminotransferase 61 IU/L (<50); Albumin Globulin Ratio 1.3 (1.0-2.8); Alkaline Phosphatase 94 U/L (38-126); Aspartate Aminotransferase 51 IU/L (17-59); BUN Creatinine Ratio 13.6 (6-22); Bilirubin Total 0.2 mg/dL (0.2-1.3); Blood Urea Nitrogen 8 mg/dL (9-20); Calcium 8.9 mg/dL (8.4-10.2); Carbon Dioxide 23 mmol/L (22-32); Chloride 107 mmol/L (98-107); Estimated Glomerular Filt Rate > 60.0 mL/min (>60); Globulin 3.1 g/dL (1.7-4.1); Glucose 85 mg/dL (70-100); HEMOLYSIS < 15 (0-50); Sodium 139 mmol/L (137-145); Total Protein 7.1 g/dL (6.3-8.2)
[2020-10-11 06:52] LABS: COVID19 -Nasal RAPID Negative (Negative)
--- NOTE | 2020-10-11 08:03 | PC.NURSE ---
MD informed of pt's BP 85/61, pt is asymptomatic, sitting up in bed talking. Pain still 04/30. informed.
[2020-10-11] MEDS: SODIUM CHLORIDE 0.9% 1,000 ML 1000 ML IV (08:49)
[2020-10-11] MEDS: HYDROMORPHONE 0.5 MG INJ IV (10:39)
[2020-10-11] MEDS: diazePAM 5 MG TABLET PO (11:13)
== END 2020-10-11 11:37 | disposition short-term general hospital (02) ==
PROVIDERS: Emergency Medicine; Emergency Provider Emergency Medicine
DX: S82.142A Displaced bicondylar fracture of left tibia, initial encounter for closed fracture (principal); S72.432A Displaced fracture of medial condyle of left femur, initial encounter for closed fracture; X58.XXXA Exposure to other specified factors, initial encounter; Z20.822 Contact with and (suspected) exposure to COVID-19
CPT/HCPCS: 36415; 73562; 73700; 80053; 85025; 87635; 96361; 96374; 96375; 96376; 99284; C9803; J1170; J2405

== ENCOUNTER 2022-03-30 15:04 | Emergency (ER) | payer OTHER, MEDICAID, SELFPAY ==
[2022-03-30 15:10] VITALS: BP 121/78; PULSE 101; RESP 14; TEMP 36.7; O2SAT 96; BMI 19.2
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
[2022-03-30] MEDS: IBUPROFEN 400 MG TABLET 800 MG PO (16:41)
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
[2022-03-30 18:02] VITALS: BP 121/75; PULSE 74; RESP 18; O2SAT 99
== END 2022-03-30 18:02 | disposition home or self-care (01) ==
PROVIDERS: Emergency Provider Registered Nurse
DX: R07.9 Chest pain, unspecified (principal); V89.2XXA Person injured in unspecified motor-vehicle accident, traffic, initial encounter
CPT/HCPCS: 71045; 93005; 93010; 99283